=== PATIENT | female | born 1990 | race Caucasian/White ===

== ENCOUNTER 2018-09-20 12:11 | Day surgery (SDC) | payer BC ==
[2018-09-20] MEDS ORDERED: PROPOFOL 20 ML (14:24)
== END 2018-09-20 17:21 | disposition home or self-care (01) ==
LOC: GIL 12:11
DX: K21.0 Gastro-esophageal reflux disease with esophagitis (principal); K44.9 Diaphragmatic hernia without obstruction or gangrene; J45.909 Unspecified asthma, uncomplicated
CPT/HCPCS: 43239; 88305; 88312; 88313